=== PATIENT | female | born 1975 | race Two or more races ===

== ENCOUNTER 2017-03-14 18:00 | Emergency (ER) | payer OTHER, SELFPAY ==
[~2017-03-14] VITALS: Ht 152.4 cm; Wt 59.0 kg
[2017-03-14] MEDS ORDERED: MAALOX/HYOSCYAMINE/LIDOCAINE 45 ML BOTTLE ONE (18:34)
[2017-03-14] MEDS ORDERED: ONDANSETRON ODT 4 MG ONE (18:36)
[2017-03-14] MEDS ORDERED: ONDANSETRON ODT 4 MG PO ONE (19:00)
[2017-03-14] MEDS ORDERED: MAALOX/HYOSCYAMINE/LIDOCAINE 45 ML BOTTLE PO ONE (19:00)
[2017-03-14 19:04] LABS: BLOOD UREA NITROGEN 10 mg/dL (7-18)
[2017-03-14 19:07] LABS: ASPARTATE AMINO TRANSFERASE 10 U/L (15-37)
[2017-03-14] MEDS ORDERED: MORPHINE SULFATE 4 MG/ML, 1ML ONE (19:29)
[2017-03-14] MEDS ORDERED: ONDANSETRON 2MG/ML, 2ML ONE (19:29)
[2017-03-14] MEDS ORDERED: SODIUM CHLORIDE 0.9% 1,000ML IVBOLUS ONE (19:30)
[2017-03-14] MEDS ORDERED: ONDANSETRON 2MG/ML, 2ML IVPush ONE (19:30)
[2017-03-14] MEDS ORDERED: SODIUM CHLORIDE FLUSH 10ML SYR IVF ONE (19:30)
[2017-03-14] MEDS: MORPHINE SULFATE 4 MG/ML, 1ML IVPush PRN ×2 (19:32→20:15)
[2017-03-14 20:04] VITALS: BP 124/74
[2017-03-14 20:38] LABS: HCG UR OBC PASS
[2017-03-15] MEDS ORDERED: OMNIPAQUE 350 MG/ML, 100ML BOTTLE ONE (01:07)
== END 2017-03-14 21:55 | disposition home or self-care (01) ==
LOC: ED 21:25
DX: K29.00 Acute gastritis without bleeding (principal); R10.84 Generalized abdominal pain
CPT/HCPCS: 36415; 74020; 74177; 76700; 80053; 81001; 81025; 83690; 85025; 96361; 96374; 96375; 96376; 99285; J2405; J7030; Q0162; Q9967

== ENCOUNTER 2017-11-16 10:48 | Emergency (ER) | payer OTHER ==
[~2017-11-16] VITALS: Ht 154.9 cm; Wt 60.5 kg
[2017-11-16 12:04] LABS: ALBUMIN 3.9 g/dL (3.4-5.0); ANION GAP 8 mmol/L (5-15); CALCIUM 8.7 mg/dL (8.5-10.1); CHLORIDE 111 mmol/L (98-107)
[2017-11-16 12:07] LABS: BASOPHILS # (AUTO) 0.04 x10^3/uL (0-0.1); BASOPHILS % (AUTO) 1 % (0-1); EOSINOPHILS # (AUTO) 0.08 x10^3/uL (0-0.4); EOSINOPHILS % (AUTO) 1 % (1-7); LYMPHOCYTES # (AUTO) 2.33 x10^3/uL (1-3.4); LYMPHOCYTES % (AUTO) 39 % (22-44); MD NO; MEAN CORPUSCULAR HEMOGLOBIN 30.7 pg (27.0-34.8); MEAN CORPUSCULAR HGB CONC 33.4 g/dL (32.4-35.8); MEAN CORPUSCULAR VOLUME 91.9 fL (80-100); MEAN PLATELET VOLUME 9.4 fL (7.4-10.4); MONOCYTES # (AUTO) 0.39 x10^3/uL (0.2-0.8); MONOCYTES % (AUTO) 7 % (2-9); NEUTROPHILS # (AUTO) 3.15 x10^3/uL (1.8-6.8); NEUTROPHILS % (AUTO) 53 % (42-75); PLATELET COUNT 261 x10^3/uL (130-400); RED BLOOD COUNT 4.67 x10^6/uL (3.82-5.3); RED CELL DISTRIBUTION WIDTH 13.6 % (9.6-15.2)
[2017-11-16] MEDS ORDERED: MORPHINE SULFATE 4 MG/ML, 1ML ONE (12:07)
[2017-11-16] MEDS ORDERED: ONDANSETRON 2MG/ML, 2ML ONE (12:07)
[2017-11-16 12:09] LABS: MICROSCOPIC AUTO
[2017-11-16 12:18] LABS: CULTURE INDICATED? NO
[2017-11-16] MEDS ORDERED: SODIUM CHLORIDE 0.9% 1,000ML IVBOLUS ONE (12:30)
[2017-11-16] MEDS ORDERED: ONDANSETRON 2MG/ML, 2ML IVPush ONE (12:30)
[2017-11-16] MEDS ORDERED: SODIUM CHLORIDE FLUSH 10ML SYR IVF ONE (12:30)
[2017-11-16] MEDS ORDERED: MORPHINE SULFATE 4 MG/ML, 1ML IVPush PRN (12:30)
[2017-11-16] MEDS ORDERED: OMNIPAQUE 350 MG/ML, 100ML BOTTLE ONE (13:08)
[2017-11-16 13:45] VITALS: BP 103/58
== END 2017-11-16 13:47 | disposition home or self-care (01) ==
LOC: ED 13:41
DX: R10.31 Right lower quadrant pain (principal); M54.5 Low back pain; G89.29 Other chronic pain
CPT/HCPCS: 36415; 74177; 80048; 81001; 82040; 84703; 85025; 96361; 96374; 96375; 99285; J2405; J7030; Q9967

== ENCOUNTER 2018-06-16 11:37 | Emergency (ER) | payer OTHER ==
[~2018-06-16] VITALS: Ht 152.4 cm; Wt 60.1 kg
[2018-06-16] MEDS ORDERED: ONDANSETRON ODT 4 MG ONE (12:11)
[2018-06-16] MEDS ORDERED: MORPHINE SULFATE 4 MG/ML, 1ML ONE ×2 (12:12→13:59)
[2018-06-16] MEDS ORDERED: ONDANSETRON ODT 4 MG PO ONE (12:30)
[2018-06-16] MEDS ORDERED: SODIUM CHLORIDE FLUSH 10ML SYR IVF ONE (12:30)
[2018-06-16] MEDS ORDERED: MORPHINE SULFATE 4 MG/ML, 1ML IVPush PRN (12:30)
[2018-06-16 12:33] LABS: BASOPHILS # (AUTO) 0.04 x10^3/uL (0-0.1); BASOPHILS % (AUTO) 1 % (0-1); EOSINOPHILS # (AUTO) 0.06 x10^3/uL (0-0.4); EOSINOPHILS % (AUTO) 1 % (1-7); LYMPHOCYTES # (AUTO) 1.95 x10^3/uL (1-3.4); LYMPHOCYTES % (AUTO) 30 % (22-44); MD NO; MEAN CORPUSCULAR HEMOGLOBIN 31.4 pg (27.0-34.8); MEAN CORPUSCULAR HGB CONC 34.2 g/dL (32.4-35.8); MEAN CORPUSCULAR VOLUME 91.6 fL (80-100); MEAN PLATELET VOLUME 8.8 fL (7.4-10.4); MONOCYTES # (AUTO) 0.44 x10^3/uL (0.2-0.8); MONOCYTES % (AUTO) 7 % (2-9); NEUTROPHILS # (AUTO) 3.99 x10^3/uL (1.8-6.8); NEUTROPHILS % (AUTO) 62 % (42-75); PLATELET COUNT 291 x10^3/uL (130-400); RED BLOOD COUNT 4.56 x10^6/uL (3.82-5.3); RED CELL DISTRIBUTION WIDTH 13.4 % (9.6-15.2)
[2018-06-16 12:44] LABS: ALANINE AMINOTRANSFERASE 21 U/L (12-78); ALBUMIN 4.1 g/dL (3.4-5.0); ANION GAP 8 mmol/L (5-15); CALCIUM 8.9 mg/dL (8.5-10.1); CHLORIDE 108 mmol/L (98-107)
[2018-06-16 12:46] LABS: ALKALINE PHOSPHATASE 84 U/L (45-117); BILIRUBIN,TOTAL 1.1 mg/dL (0.2-1.0); TOTAL PROTEIN 7.6 g/dL (6.4-8.2)
[2018-06-16] MEDS ORDERED: MAALOX/HYOSCYAMINE/LIDOCAINE 45 ML BTL PO ONE (13:00)
[2018-06-16] MEDS ORDERED: MAALOX/HYOSCYAMINE/LIDOCAINE 45 ML BTL ONE (13:04)
[2018-06-16] MEDS ORDERED: OMNIPAQUE 350 MG/ML, 100ML BOTTLE ONE (13:49)
[2018-06-16 14:37] VITALS: BP 102/55
== END 2018-06-16 14:41 | disposition home or self-care (01) ==
LOC: ED 14:35
DX: K27.9 Peptic ulcer, site unspecified, unspecified as acute or chronic, without hemorrhage or perforation (principal); R10.13 Epigastric pain
CPT/HCPCS: 36415; 74177; 76700; 80053; 83690; 84703; 85025; 86677; 93005; 96374; 99285; Q0162; Q9967

== ENCOUNTER 2018-07-23 12:20 | Emergency (ER) | payer OTHER ==
[~2018-07-23] VITALS: Ht 152.4 cm; Wt 55.8 kg
[2018-07-23] MEDS ORDERED: LORA1TAB PO (12:54)
[2018-07-23] MEDS ORDERED: PROP10TA PO (12:55)
[2018-07-23] MEDS ORDERED: LORazepam 2 MG/ML, 1ML IVPush ONE (13:00)
[2018-07-23] MEDS ORDERED: LORazepam 2 MG/ML, 1ML ONE (13:09)
[2018-07-23 13:23] LABS: BASOPHILS # (AUTO) 0.03 x10^3/uL (0-0.1); BASOPHILS % (AUTO) 1 % (0-1); EOSINOPHILS # (AUTO) 0.05 x10^3/uL (0-0.4); EOSINOPHILS % (AUTO) 1 % (1-7); LYMPHOCYTES # (AUTO) 1.54 x10^3/uL (1-3.4); LYMPHOCYTES % (AUTO) 24 % (22-44); MD NO; MEAN CORPUSCULAR HEMOGLOBIN 31.8 pg (27.0-34.8); MEAN CORPUSCULAR HGB CONC 34.4 g/dL (32.4-35.8); MEAN CORPUSCULAR VOLUME 92.5 fL (80-100); MEAN PLATELET VOLUME 8.7 fL (7.4-10.4); MONOCYTES # (AUTO) 0.42 x10^3/uL (0.2-0.8); MONOCYTES % (AUTO) 7 % (2-9); NEUTROPHILS # (AUTO) 4.38 x10^3/uL (1.8-6.8); NEUTROPHILS % (AUTO) 68 % (42-75); PLATELET COUNT 283 x10^3/uL (130-400); RED CELL DISTRIBUTION WIDTH 13.4 % (9.6-15.2)
[2018-07-23 13:29] LABS: INTERNATIONAL NORMALIZED RATIO 1.06 (0.93-1.1); PROTHROMBIN TIME 10.9 Seconds (9.6-11.5)
[2018-07-23] MEDS ORDERED: OMNIPAQUE 350 MG/ML, 100ML BOTTLE ONE (14:10)
[2018-07-23 16:12] VITALS: BP 101/58
== END 2018-07-23 16:14 | disposition home or self-care (01) ==
LOC: ED 12:55
DX: R53.1 Weakness (principal); F43.9 Reaction to severe stress, unspecified; G43.909 Migraine, unspecified, not intractable, without status migrainosus
CPT/HCPCS: 36415; 70450; 70496; 70498; 70551; 80047; 85025; 85610; 85730; 93005; 96374; 99285; J2060; Q9967

== ENCOUNTER 2018-08-07 07:51 | Inpatient (IN) | payer OTHER ==
[~2018-08-07] VITALS: Ht 149.9 cm; Wt 60.0 kg
[~2018-08-07 07:51] MED LIST: LORA1TAB PO; PROP10TA PO
[2018-08-07 08:46] LABS: BASOPHILS # (AUTO) 0.05 x10^3/uL (0-0.1); BASOPHILS % (AUTO) 1 % (0-1); EOSINOPHILS # (AUTO) 0.02 x10^3/uL (0-0.4); EOSINOPHILS % (AUTO) 0 % (1-7); LYMPHOCYTES # (AUTO) 1.82 x10^3/uL (1-3.4); LYMPHOCYTES % (AUTO) 19 % (22-44); MD NO; MEAN CORPUSCULAR HEMOGLOBIN 31.1 pg (27.0-34.8); MEAN CORPUSCULAR HGB CONC 33.4 g/dL (32.4-35.8); MEAN CORPUSCULAR VOLUME 93.1 fL (80-100); MONOCYTES # (AUTO) 0.52 x10^3/uL (0.2-0.8); MONOCYTES % (AUTO) 6 % (2-9); NEUTROPHILS # (AUTO) 6.97 x10^3/uL (1.8-6.8); NEUTROPHILS % (AUTO) 74 % (42-75); PLATELET COUNT 288 x10^3/uL (130-400); RED BLOOD COUNT 4.48 x10^6/uL (3.82-5.3); RED CELL DISTRIBUTION WIDTH 13.4 % (9.6-15.2)
[2018-08-07 08:59] LABS: ALBUMIN 3.9 g/dL (3.4-5.0); ANION GAP 11 mmol/L (5-15); CALCIUM 8.7 mg/dL (8.5-10.1); CHLORIDE 110 mmol/L (98-107)
[2018-08-07 09:02] LABS: MICROSCOPIC INDICATED
[2018-08-07 09:03] LABS: HCG UR SG 1.024 (1.003-1.030)
[2018-08-07 09:06] LABS: SALICYLATE LEVEL < 1.7 mg/dL (2.8-20.0)
[2018-08-07 09:08] LABS: AMPHETAMINE SCREEN, URINE Negative (Negative); BARBITURATE SCREEN, URINE Negative (Negative); BENZODIAZEPINE SCREEN, URINE Negative (Negative); CANNABINOID SCREEN, URINE Negative (Negative); COCAINE SCREEN, URINE Negative (Negative); METHADONE SCREEN, URINE Negative (Negative); OPIATE SCREEN, URINE Negative (Negative)
[2018-08-07 09:10] LABS: ALANINE AMINOTRANSFERASE 19 U/L (12-78); ALKALINE PHOSPHATASE 71 U/L (45-117); BILIRUBIN,TOTAL 0.8 mg/dL (0.2-1.0); CREATININE 0.55 mg/dL (0.55-1.02); TOTAL PROTEIN 7.4 g/dL (6.4-8.2)
[2018-08-07 09:16] LABS: CULTURE INDICATED? NO
[2018-08-07 09:25] LABS: ACETAMINOPHEN < 2 mcg/mL (10-30)
[2018-08-07] MEDS ORDERED: hydrALAzine 20 MG/ML, 1ML IVPush PRN (12:00)
[2018-08-07 12:40] VITALS: BP 112/73
[2018-08-07] MEDS ORDERED: LIDOCAINE-MPF 1%, 5ML ONE ×2 (13:47)
[2018-08-07] MEDS: D5%-0.45NACL+KCL 20MEQ 1,000 ML IV SCH ×2 (14:02→23:52)
[2018-08-07] MEDS: ACETAMINOPHEN 325 MG TABLET PO PRN (19:16)
[2018-08-07 20:16] VITALS: BP 97/64
[2018-08-07 21:08] VITALS: BP_SYST 81; BP_SYST 85; BP_DIAS 49; BP_DIAS 51
[2018-08-07] MEDS ORDERED: SODIUM CHLORIDE 0.9% 1,000ML IVBOLUS ONE (22:00)
[2018-08-07 23:56] VITALS: BP 86/64
[2018-08-08] VITALS (7 sets, daily range): BP systolic 82–97; BP diastolic 50–67
[2018-08-08] MEDS: ACETAMINOPHEN 325 MG TABLET PO PRN ×2 (02:29→09:34)
[2018-08-08] MEDS ORDERED: SODIUM CHLORIDE 0.9% 1,000ML IVBOLUS ONE (02:30)
[2018-08-08] MEDS: D5%-0.45NACL+KCL 20MEQ 1,000 ML IV SCH (09:54)
== END 2018-08-08 15:35 | disposition home or self-care (01) | DRG 71 ==
LOC: ED 11:31 → EDIP 11:35 → 4NOR 12:27 → DCLOUNGE 08-08 15:35
PROVIDERS: ADMIT Hospitalist; ATTEND Family Medicine
DX: G93.40 Encephalopathy, unspecified (principal); F13.20 Sedative, hypnotic or anxiolytic dependence, uncomplicated; E87.6 Hypokalemia; F41.1 Generalized anxiety disorder; F43.9 Reaction to severe stress, unspecified; G43.909 Migraine, unspecified, not intractable, without status migrainosus; F44.9 Dissociative and conversion disorder, unspecified; Z81.8 Family history of other mental and behavioral disorders; Z87.11 Personal history of peptic ulcer disease
CPT/HCPCS: 70450; 80053; 80307; 80329; 81001; 81025; 82962; 84443; 85025; 93005; 99285; G0378; G0480; J3480; J7030

== ENCOUNTER 2018-10-16 17:27 | Emergency (ER) | payer OTHER ==
[~2018-10-16] VITALS: Ht 152.4 cm; Wt 53.0 kg
--- NOTE | 2018-10-16 17:50 | NUR ---
PT BIBA, FOUND RESPONSIVE ONLY TO PAINFUL STIMULI AT HOME. PER EMS AND FAMILY, PT WAS LAST SEEN NORMAL THIS AM, WHEN PT HAD VERBAL ALTERCATION WITH . PT'S STATES HE THOUGHT SHE WAS SLEEPING THIS PM THEN WAS UNABLE TO AWAKEN PT AND CALLED EMS. PT HAS HX SAME BEHAVIOR FOLLOWING VERBAL ARGUMENT PREVIOUSLY, NEGATIVE WORKUP AT THAT TIME. PT HAS NO HX DEPRESSION/SI/SUBSTANCE ABUSE. STATES PT HAS HAD NO RECENT TRAUMA OR ILLNESS. FSBS 79. ALL MONITORS IN PLACE. FAMILY AT BEDSIDE. AWAITING MD AND ORDERS AT THIS TIME.
[2018-10-16] MEDS ORDERED: PRILOSEC (17:51)
[2018-10-16] MEDS ORDERED: OMEPRAZOLE (17:51)
--- NOTE | 2018-10-16 18:20 | NUR ---
report to lunch LINDEN Salazar at bedside
--- NOTE | 2018-10-16 18:26 | NUR ---
TASK RN: Patient is awake, tearful. and family member at bedside, waiting to be evaluated by provider.
--- NOTE | 2018-10-16 18:29 | NUR ---
TASK RN: Dr. Kohli at bedside evaluating patient.
[2018-10-16] MEDS ORDERED: LORazepam 1MG TABLET ONE (18:40)
--- NOTE | 2018-10-16 18:55 | NUR ---
TASK RN: Patient continues to be tearful, plan of care updated and questions answered. Patient is refusing head CT at this time. Patient requests pain medication for headache. Dr. Kohli made aware.
[2018-10-16 18:57] LABS: BASOPHILS # (AUTO) 0.06 x10^3/uL (0-0.1); BASOPHILS % (AUTO) 1 % (0-1); EOSINOPHILS # (AUTO) 0.06 x10^3/uL (0-0.4); EOSINOPHILS % (AUTO) 1 % (1-7); LYMPHOCYTES # (AUTO) 1.99 x10^3/uL (1-3.4); LYMPHOCYTES % (AUTO) 20 % (22-44); MD NO; MEAN CORPUSCULAR HEMOGLOBIN 31.6 pg (27.0-34.8); MEAN CORPUSCULAR HGB CONC 34.4 g/dL (32.4-35.8); MEAN CORPUSCULAR VOLUME 92.1 fL (80-100); MEAN PLATELET VOLUME 8.6 fL (7.4-10.4); MONOCYTES # (AUTO) 0.63 x10^3/uL (0.2-0.8); MONOCYTES % (AUTO) 6 % (2-9); NEUTROPHILS # (AUTO) 7.17 x10^3/uL (1.8-6.8); NEUTROPHILS % (AUTO) 72 % (42-75); PLATELET COUNT 293 x10^3/uL (130-400); RED CELL DISTRIBUTION WIDTH 13.6 % (9.6-15.2)
[2018-10-16] MEDS ORDERED: ACETAMINOPHEN 500 MG TABLET PO ONE (19:00)
[2018-10-16] MEDS ORDERED: LORazepam 1MG TABLET PO ONE (19:00)
--- NOTE | 2018-10-16 19:01 | NUR ---
Patient's family ask if they can give her tylenol, notified that tylenol was ordered and would be administered, family educated not to give patient any pills while in emergency department, verbalize understanding; Dr. Kohli notified.
[2018-10-16 19:03] LABS: ALANINE AMINOTRANSFERASE 19 U/L (12-78); ALBUMIN 3.9 g/dL (3.4-5.0); ANION GAP 8 mmol/L (5-15); CALCIUM 8.8 mg/dL (8.5-10.1); CHLORIDE 111 mmol/L (98-107)
[2018-10-16 19:06] LABS: ALKALINE PHOSPHATASE 81 U/L (45-117); BILIRUBIN,TOTAL 1.3 mg/dL (0.2-1.0); TOTAL PROTEIN 7.3 g/dL (6.4-8.2)
[2018-10-16] MEDS ORDERED: ACETAMINOPHEN 500 MG TABLET ONE (19:27)
--- NOTE | 2018-10-16 19:33 | NUR ---
REPORT TAKEN FROM LINDEN GALVEZ. PT IS NOW A&OX4, FOLLOWS COMMANDS, AND REPORTS HEADACHE. PT STATES THAT SHE REMEMBERS GETTING INTO AN ARGUMENT WITH HER THIS AM, THEN SHE BEGAN TO HAVE A MIGRAINE AND TOOK A NAP. PT STATES "I COULDN'T WAKE UP AFTER THE NAP." PT CONVERSING WITH AND DAUGHTER IN ROOM. PT IS CALM AND COOPERATIVE. NEURO INTACT. PT HAS NO DRIFT, EQUAL GRASP BILATERALLY AND EQUAL STRENGTH TO ALL EXTREMITIES. 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 PT REFUSING HEAD CT. PT INSTRUCTED TO PROVIDE CLEAN CATCH URINE SAMPLE.
--- NOTE | 2018-10-16 19:47 | NUR ---
pt up to bathroom with 's assist. urine collected and sent to lab.
[2018-10-16 19:54] LABS: CULTURE INDICATED? YES; MICROSCOPIC INDICATED
--- NOTE | 2018-10-16 20:07 | NUR ---
all results back, chart up for recheck. awaiting MD and dispo.
[2018-10-16 21:21] VITALS: BP 96/59
--- NOTE | 2018-10-16 21:23 | NUR ---
pt given dc instructions. pt wheel to dc with pt's family. pt aox4. resps even and unlabored. pt states that feeling better at dc. no acute distress at dc.
== END 2018-10-16 21:23 | disposition home or self-care (01) ==
LOC: ED 19:13
DX: F41.1 Generalized anxiety disorder (principal); R06.4 Hyperventilation; G43.909 Migraine, unspecified, not intractable, without status migrainosus
CPT/HCPCS: 80053; 81001; 82962; 85025; 87086; 93005; 99284

== ENCOUNTER 2018-12-16 21:33 | Emergency (ER) | payer OTHER ==
[~2018-12-16] VITALS: Ht 157.5 cm; Wt 50.4 kg
[~2018-12-16 21:33] MED LIST changes: +OMEPRAZOLE; +PRILOSEC; -PROP10TA PO; +PROP10TA16 PO
--- NOTE | 2018-12-16 21:38 | NUR ---
CALLED TO LOBBY TO ASSIST PT OUT OF CAR, CALLED FOR DIFFICULTY BREATHING, PT LIFTED OUT OF CAR BY FAMILY MEMBER WHO STATES PT HAS A HISTORY OF ANXIETY AND THIS IS A COMMON EVENT FOR PT, TAKED TO TRIAGE ROOM, PT STERNAL RUBBED AND OPENS EYES, REMAINS NON RESPONSIVE AT THIS TIME, PT SPO2 100% RA, VSS, FAMILY PROVIDED N MICHELLE AND PT TAKEN TO ROOM 22.
--- NOTE | 2018-12-16 21:40 | NUR ---
PT UNRESPONSIVE TO PAINFUL STIMULI. PER PT FRIENDS, PT HAS ANXIETY ATTACKS AND PROGRESSES INTO THESE EPISODES. MONITORS APPLIED, SIDERAILS UP X2, CALL LIGHT WITHIN REACH, FAMILY AT BEDSIDE.
--- NOTE | 2018-12-16 22:59 | NUR ---
PT RESTING ON GURNEY, MONITORS IN PLACE, REMAINS UNRESPONSIVE TO PAINFUL STIMULI OR AMMONIA STICK, ERP UPDATED. PT'S FAMILY AT BEDSIDE, CALL LIGHT WITHIN REACH.
--- NOTE | 2018-12-17 00:14 | NUR ---
PT RESTING ON GURNEY, PT REMAINS UNRESPONSIVE TO VEBAL OR PAINFUL STIMULI, FAMILY AT BEDSIDE, CALL LIGHT WITHIN REACH.
[2018-12-17 00:36] VITALS: BP 103/70
== END 2018-12-17 00:39 | disposition home or self-care (01) ==
LOC: ED 23:36
DX: F44.4 Conversion disorder with motor symptom or deficit (principal); F41.1 Generalized anxiety disorder; G43.909 Migraine, unspecified, not intractable, without status migrainosus; Z98.890 Other specified postprocedural states; Z87.11 Personal history of peptic ulcer disease
CPT/HCPCS: 93005; 99284

== ENCOUNTER 2018-12-17 17:17 | Emergency (ER) | payer OTHER ==
[~2018-12-17] VITALS: Ht 152.4 cm; Wt 58.0 kg
[2018-12-17] MEDS ORDERED: SODIUM CHLORIDE 0.9% 1,000 ML IV ONE (17:56)
[2018-12-17] MEDS ORDERED: SODIUM CHLORIDE FLUSH 10ML SYR IVF ONE (18:00)
[2018-12-17] MEDS ORDERED: SODIUM CHLORIDE 0.9% 1,000ML IVBOLUS ONE (18:00)
[2018-12-17 18:09] LABS: BASOPHILS # (AUTO) 0.04 x10^3/uL (0-0.1); BASOPHILS % (AUTO) 0 % (0-1); EOSINOPHILS # (AUTO) 0.07 x10^3/uL (0-0.4); EOSINOPHILS % (AUTO) 1 % (1-7); LYMPHOCYTES # (AUTO) 1.84 x10^3/uL (1-3.4); LYMPHOCYTES % (AUTO) 19 % (22-44); MD NO; MEAN CORPUSCULAR HEMOGLOBIN 31.8 pg (27.0-34.8); MEAN CORPUSCULAR VOLUME 93.7 fL (80-100); MEAN PLATELET VOLUME 8.3 fL (7.4-10.4); MONOCYTES # (AUTO) 0.54 x10^3/uL (0.2-0.8); MONOCYTES % (AUTO) 6 % (2-9); NEUTROPHILS # (AUTO) 7.23 x10^3/uL (1.8-6.8); NEUTROPHILS % (AUTO) 74 % (42-75); PLATELET COUNT 313 x10^3/uL (130-400); RED BLOOD COUNT 4.73 x10^6/uL (3.82-5.3); RED CELL DISTRIBUTION WIDTH 14.1 % (9.6-15.2)
[2018-12-17 18:16] LABS: ALANINE AMINOTRANSFERASE 26 U/L (12-78); ALBUMIN 4.1 g/dL (3.4-5.0); ANION GAP 7 mmol/L (5-15); CALCIUM 8.8 mg/dL (8.5-10.1); CHLORIDE 111 mmol/L (98-107)
[2018-12-17 18:18] LABS: ALKALINE PHOSPHATASE 82 U/L (45-117); BILIRUBIN,TOTAL 1.3 mg/dL (0.2-1.0); TOTAL PROTEIN 7.4 g/dL (6.4-8.2)
[2018-12-17 18:19] LABS: ACETAMINOPHEN < 2 mcg/mL (10-30); SALICYLATE LEVEL < 1.7 mg/dL (2.8-20.0)
--- NOTE | 2018-12-17 18:30 | NUR ---
PT IS VERY DROWSY. IS ABLE TO FOLLOW SOME COMMANDS. WILL OPEN HER EYES AND LOOK WHERE TOLD. WHEN ASKED IF SHE IS IN PAIN, SHAKES HER HEAD YES AND POINTS TO LLQ AND SAYS "HEAD". WHEN ASKED WHEN IT STARTED, SHE STATES LAST NIGHT. PT IS MINIMALLY RESPONSIVE OTHERWISE. PIV STARTED WITH FLUIDS. 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
--- NOTE | 2018-12-17 19:36 | NUR ---
FLUIDS STARTED TO OBTAIN URINE SAMPLE. WILL TRY AGAIN WHEN FLUIDS FINISH
--- NOTE | 2018-12-17 21:10 | NUR ---
STRAIGHT CATH UA SENT. AWAITING RESULTS AND THEN TELEPSYCH
[2018-12-17 21:26] LABS: MICROSCOPIC AUTO
[2018-12-17 21:27] LABS: CULTURE INDICATED? NO
[2018-12-17 21:37] LABS: AMPHETAMINE SCREEN, URINE Negative (Negative); BARBITURATE SCREEN, URINE Negative (Negative); BENZODIAZEPINE SCREEN, URINE Negative (Negative); CANNABINOID SCREEN, URINE Negative (Negative); COCAINE SCREEN, URINE Negative (Negative); METHADONE SCREEN, URINE Negative (Negative); OPIATE SCREEN, URINE Negative (Negative)
--- NOTE | 2018-12-17 21:38 | NUR ---
telepsych monitor to room, at bedside, pt nsr monitor without ectopy.
[2018-12-17 21:39] VITALS: BP 104/67
--- NOTE | 2018-12-17 22:10 | NUR ---
REPORT GIVEN TO DR. GUSMAN TELEPSYCH
--- NOTE | 2018-12-17 22:14 | NUR ---
TELEPSYCH ASSESSING PATIENT
== END 2018-12-17 23:14 | disposition home or self-care (01) ==
LOC: ED 18:22
DX: F33.3 Major depressive disorder, recurrent, severe with psychotic symptoms (principal); R41.82 Altered mental status, unspecified; G43.909 Migraine, unspecified, not intractable, without status migrainosus; F41.1 Generalized anxiety disorder
CPT/HCPCS: 36415; 74176; 80053; 80307; 80329; 81001; 85025; 93005; 96360; 96361; 99284; J7030; G0480